=== PATIENT | male | born 1945 | race Caucasian/White ===

== ENCOUNTER 2018-08-21 09:43 | Emergency (ER) | payer OTHER ==
[~2018-08-21] VITALS: Ht 180.3 cm; Wt 120.2 kg
--- NOTE | 2018-08-21 09:45 | NUR ---
PT AMBULATED TO ER BED 07
[2018-08-21 09:51] VITALS: BP 138/97
--- NOTE | 2018-08-21 09:51 | NUR ---
PATIENT C/O "PINK EYE" WITH EYE DISHARGE BILATERAL WORSENING THIS MORNING. REPORTS GETTING EYES DIALATED LAST FRIDAY. DENIES PAIN. VSS; PATIENT POSITIONED FOR COMFORT; HOB ELEVATED; BEDRAILS UP X2; BED DOWN. ER MD MADE AWARE OF PT STATUS.
--- NOTE | 2018-08-21 10:26 | NUR ---
Patient discharged with v/s stable. Written and verbal after care instructions given and explained. Patient alert, oriented and verbalized understanding of instructions. Ambulatory with steady gait. All questions addressed prior to discharge. ID band removed. Patient advised to follow up with PMD. Rx of PREDNISONE AND BENADRYL given. Patient educated on indication of medication including possible reaction and side effects. Opportunity to ask questions provided and answered.
[2018-08-21 10:28] VITALS: BP 138/97
== END 2018-08-21 10:26 | disposition home or self-care (01) ==
LOC: MED 09:43
DX: J30.9 Allergic rhinitis, unspecified (principal); H57.11 Ocular pain, right eye; I10 Essential (primary) hypertension; Z88.6 Allergy status to analgesic agent
CPT/HCPCS: 99283

== ENCOUNTER 2019-09-27 11:04 | Emergency (ER) | payer OTHER ==
[~2019-09-27] VITALS: Ht 180.3 cm; Wt 104.3 kg
[2019-09-27 11:08] VITALS: BP 120/56
--- NOTE | 2019-09-27 11:22 | NUR ---
Patient ambulated to bed 4. RN evaluating patient at bedside.
--- NOTE | 2019-09-27 11:25 | NUR ---
pt arrived to ed c/o cold sx x 1 week. lung sounds clear all throughout. productive moist cough, congested nose. complains of sinus pain and lynn. no resp distress noted. vss. no use of accessory muscle. pt states he has chest pain when he coughs. rates pain 3/10 and describes it as pressure. heart sound s1s2 present. a & o x 4. airway patent adn clear. denies sore throat. pmh: htn, high cholesterol allergies: codeine.
--- NOTE | 2019-09-27 11:57 | NUR ---
xr at bedside.
--- NOTE | 2019-09-27 12:25 | NUR ---
pt laying comfortably in bed using phone. denies any pain. no resp distress noted.
[2019-09-27 12:28] VITALS: BP 120/56
--- NOTE | 2019-09-27 12:55 | NUR ---
Patient discharged with v/s stable. Written and verbal after care instructions given and explained. Patient verbalized understanding. Ambulatory with steady gait. All questions addressed prior to discharge. Advised to follow up with PMD.
== END 2019-09-27 12:52 | disposition home or self-care (01) ==
LOC: MED 11:04
DX: B34.9 Viral infection, unspecified (principal); I49.3 Ventricular premature depolarization; I10 Essential (primary) hypertension; E78.5 Hyperlipidemia, unspecified; Z98.890 Other specified postprocedural states; Z88.5 Allergy status to narcotic agent
CPT/HCPCS: 71045; 93005; 99283; Q0092

== ENCOUNTER 2021-03-02 10:55 | Emergency (ER) | payer OTHER ==
[~2021-03-02] VITALS: Ht 180.3 cm; Wt 102.1 kg
--- NOTE | 2021-03-02 10:59 | NUR ---
W/C ASSISTED TO BED 9
[2021-03-02 11:09] VITALS: BP 183/101
--- NOTE | 2021-03-02 11:15 | NUR ---
DR JORGE AT BEDSIDE
--- NOTE | 2021-03-02 11:17 | NUR ---
75 Y/O MALE C/O DIZZINESS, HEADACHE THAT RADIATES TO BOTH EYES, +N/V WHEN STANDING TOO LONG X5DAYS. PT STATES HE TOOK 2 EXCEDRIN, ENDOMYOCIN, AND BONINE WHICH DIDNT HELP. TODAY PT STATES HE IS UNABLE TO STAND TOO LONG BECAUSE HE FEELS DIZZY AND REQUESTED WHEELCHAIR ASSISTANCE. PT WAS ABLE TO AMBULATE ONTO BED WITH STEADY GAIT. DENIES TINNITUS, DENIES CONGESTION/RHINORRHEA. PT RATES PAIN 6/10 AND STATES THAT IT IS A "SINUS HEADACHE" AND PRESSURE BEHIND HIS EYES. PT STATES HIS DIZZINESS "FEELS LIKE YOURE GETTING OFF A BOAT". PT DENIES D/SOB. PT IS A/O X4 WITH EVEN AND UNLABORED RESPIRATIONS. PT IS LAYING IN BED WITH BED IN LOWEST POSITION, BRAKES LOCKED, X2 SIDERAILS UP FOR SAFETY. PMH: HTN, HEADACHES, SINUS INFECTIONS, HEARING AIDS, VERTIGO X5YRS, HYPOGLYCEMIA ALLERGIES: CODEINE
[2021-03-02] MEDS ORDERED: ONDANSETRON 4 MG ODT PO ONE (11:20)
[2021-03-02] MEDS ORDERED: MECLIZINE 25 MG TAB PO ONE (11:20)
[2021-03-02] MEDS ORDERED: ACETAMINOPHEN 325 MG TAB PO ONE (11:20)
--- NOTE | 2021-03-02 11:25 | NUR ---
LAB AT BEDSIDE
[2021-03-02] MEDS ORDERED: CRUSHER, PILL MC ONE (11:27)
[2021-03-02 11:32] LABS: BASOPHILS # (AUTO) 0.1 K/uL (0.00-0.22); BASOPHILS % (AUTO) 0.7 % (0.0-2.0); EOSINOPHILS # (AUTO) 0.1 K/uL (0-0.4); EOSINOPHILS % (AUTO) 1.9 % (0.0-4.0); HEMATOCRIT 47.1 % (36-52); LYMPHOCYTES # (AUTO) 1.8 K/uL (2.0-11.5); LYMPHOCYTES % (AUTO) 23.9 % (20.5-51.1); MEAN CORPUSCULAR HEMOGLOBIN 32 pg (27-31); MEAN CORPUSCULAR HGB CONC 34 g/dL (33-37); MEAN CORPUSCULAR VOLUME 93.1 fL (80-94); MONOCYTES # (AUTO) 0.8 K/uL (0.8-1.0); MONOCYTES % (AUTO) 10.2 % (1.7-9.3); NEUTROPHILS # (AUTO) 4.9 K/uL (1.8-7.7); NEUTROPHILS % (AUTO) 63.3 % (42.2-75.2); PLATELET COUNT (AUTO) 294 K/uL (140-450); RED BLOOD CELL COUNT(AUTO) 5.06 MIL/uL (4.20-6.10); RED CELL DISTRIBUTION WIDTH 12.7 % (11.6-13.7); WHITE BLOOD COUNT (AUTO) 7.7 K/uL (4.8-10.8)
--- NOTE | 2021-03-02 11:44 | NUR ---
TO CT VIA W/C.
--- NOTE | 2021-03-02 11:48 | NUR ---
RETURNED FROM CT
[2021-03-02 11:55] LABS: PROTHROMBIN TIME 10.7 secs (10.8-13.4)
[2021-03-02 11:57] LABS: ALBUMIN 4.1 g/dL (3.4-5.0); ANION GAP 11.3 (8-16); ASPARTATE AMINOTRANSFERASE 18 U/L (15-37); CARBON DIOXIDE 26.6 mmol/L (21-32); CHLORIDE 103 mmol/L (98-107); CREATININE 0.9 mg/dL (0.6-1.3); GLUCOSE 100 mg/dL (74-106); POTASSIUM 3.9 mmol/L (3.5-5.1); SODIUM SERUM 137 mmol/L (136-145); TOTAL BILIRUBIN 0.7 mg/dL (0.0-1.0); UREA NITROGEN, BLOOD 17 mg/dL (7-18)
[2021-03-02] MEDS ORDERED: ONDA4TAB PO (13:24)
[2021-03-02] MEDS ORDERED: MECL-303 PO (13:24)
[2021-03-02 13:34] VITALS: BP 183/101
--- NOTE | 2021-03-02 13:34 | NUR ---
Patient discharged with v/s stable. Written and verbal after care instructions given and explained. Patient alert, oriented and verbalized understanding of instructions. Ambulatory with steady gait. All questions addressed prior to discharge. ID band removed. Patient advised to follow up with PMD. Rx of MECLIZINE 25MG BID PO PRN DIZZINESS, AND ZOFRAN 4MG PO Q8H AND PRN N/V given. Patient educated on indication of medication including possible reaction and side effects. Opportunity to ask questions provided and answered.
== END 2021-03-02 13:33 | disposition home or self-care (01) ==
LOC: MED 10:55
DX: I10 Essential (primary) hypertension (principal); R51.9 Headache, unspecified; R42 Dizziness and giddiness; Z88.5 Allergy status to narcotic agent
CPT/HCPCS: 36415; 70450; 80053; 85025; 85610; 85730; 93005; 99285; J8597; Q0162